=== PATIENT | male | born 1975 | race Caucasian/White ===

== ENCOUNTER 2016-11-26 11:37 | Emergency (ER) | payer OTHER ==
[~2016-11-26] VITALS: Wt 75.0 kg
[~2016-11-26 11:37] MED LIST: GABA300C16 PO; IBUP-1542 PO
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
--- NOTE | 2016-11-26 13:28 | RADRPT ---
PROCEDURE: XR Pelvis. CLINICAL INDICATION: Pain TECHNIQUE: Single AP view of the pelvis. COMPARISON: No prior studies are available for comparison. FINDINGS: Single frontal view of the pelvis demonstrates previous ORIF left iliac fracture using plate screw d evice is into corticated screws. No acute fractures are seen. Both femoral heads are anatomically seated. The pubic symphysis is intact. SI joints within normal limits. Sacral arches are intact. The soft tissues are unremarkable. IMPRESSION: No acute fracture identified on this single frontal view of the pelvis. Previous ORIF left pelvic fracture using plate screw devices as described RPTAT: HH .Jefferson Moeller MD, Date Time Electronically viewed and signed by .Jefferson Moeller MD, on 11/26/2016 13:28 .W/
[2016-11-26] MEDS ORDERED: HYDR-906 PO (13:37)
== END 2016-11-26 14:15 | disposition home or self-care (01) ==
LOC: FTE 11:37
DX: R10.2 Pelvic and perineal pain (principal)
CPT/HCPCS: 72170; Z7502